=== PATIENT | female | born 1990 ===

== ENCOUNTER 2025-05-09 00:37 | Day surgery (SDC) | payer OTHER, SELFPAY ==
[2025-05-03 08:49] VITALS: BMI 27.8
--- NOTE | 2025-05-03 09:07 | PC.NURSE ---
[facility] has started construction of its new state of the art ER which will open Spring 2026. With this, we anticipate parking may be a challenge for some our surgical patients and families. Parking spaces are limited but are available for all Surgical, obstetrics, and ER patients sharing this lot. If you arrive and find you are having a hard time finding a parking space, please note that we understand the challenges, please drive around the hospital and park near Hospital Entrance 1. When you enter this entrance, you can ask a volunteer to direct or take you back to the surgical waiting area to check in. We appreciate everyone?s understanding of these expected challenges while we build for your future. Report to Hospital entrance 7 right of the green pavilion by [employer] located off [address], at time _1100_ on date _[phone]_. Planned Procedure Time: _1pm_.? Time changes happen often and if your time is changed the preop area will call you the afternoon before. - You and your visitor will be asked to self-screen and do not enter if you have any COVID symptoms. Please call surgeon if you need to reschedule. - A mask is optional within the hospital at this time. Patients may have clear liquids (water, carbonated beverages, clear teas, apple juice) until 3 hours prior to surgery with a maximum of 20 ounces. - No food from midnight until time of surgery and no smoking, or chewing tobacco (or any form of nicotine). No chewing gum, candy or mints. Take only the following medications with a SIP of water on the morning of surgery: ___Norethindrone____ DO NOT STOP ANY OF YOUR OTHER PRESCRIPTION MEDICATIONS PRIOR TO SURGERY EXCEPT THE FOLLOWING Hold all vitamins and supplements for 3 days per anesthesiologist. Medications to discontinue per physician Date to take last dose Please no make-up, nail saudi arabian, hairspray, perfume, deodorant, or body powder the day of surgery.? No jewelry (including any body piercings) or valuables the day of surgery, leave them at home.? Please take a shower or bath the night before, or the morning of, surgery with an antibacterial soap.? Wear comfortable, loose fitting clothing.? - Jewelry must be removed prior to entering the operating room.? Rings and piercings that are not removed may be cut off. - The hospital will not accept responsibility for valuables.? - Please leave all valuables, including medications, at home the day of surgery. If you are going home after surgery, a licensed skip load driver must drive you home.? - NO public transportation without another adult if you receive anesthesia. - We recommend that an adult stay with you for 24 hours following discharge. - We also recommend that you do not drive, make important decision, drink alcoholic beverages, or take any drugs that were not prescribed by your health care provider for at least 24 hours after your discharge time. Follow any additional instructions given to you from your surgeon. Telephone instructions given to _Tiffany Kamara__and asked if any additional questions and then verbalized understanding. Patient advised to call surgeon office or pre surgery nurse liaison [phone] if any additional questions.
--- OUTSIDE RECORDS SUMMARY | 2025-05-09 02:04 | XMS_ITS | Clinical Summary ---
Author Organization [facility] Address [address] [place] [address] Care Team Providers Care Technical Internship Name Role Phone Liliana Ybarra Primary Care Provider + Allergies Active Allergy Reactions Criticality Noted Date Comments Amoxicillin-Pot Clavulanate Hives 02/20/20 25 Sulfamethoxazole-Trimethoprim Hives 2024 Medications omeprazole (PRILOSEC) 20 MG capsule Take 1 capsule (20 mg total) by mouth 2 (two) times a day. Active Active Problems Problem Noted Date Diagnosed Date Acid reflux 01/01/2025 Encounters Date Type Department Care Team Description 02/19/2025 1:05 PM CDT - 02/19/2025 2:05 PM CDT Surgery [facility] Surgical Services [address] [address] Ruthann Hardin MD Upper Endoscopy with biopsies 02/19/2025 12:36 PM CDT Anesthesia Event [facility] Surgical Services [address] [place] [address] Ruthann Rivas CRNA 02/19/2025 11:28 AM CDT - 02/19/2025 1:28 PM CDT Hospital Encounter [facility] Surgical Services [address] [place] [address] Ruthann Hardin MD Discharge Disposition: Home or Self Care (Routine Discharge) 02/19/2025 Travel from Last 3 Months Social History Tobacco Use Types Packs/Day Years Used Date Smoking Tobacco: Former Cigarettes Tobacco Cessation:Counseling Given: Not Answered Alcohol Use Standard Drinks/Week Comments Not Currently 0 (1 standard drink = 0.6 oz pur e alcohol) Comments No Sex and Gender Information Value Date Recorded Sex Assigned at Female 07/05/2024 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 Sex Female 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 Gender Identity Not on file Sexual Orientation Not on file Last Filed Vital Signs Vital Sign Reading Time Taken Comments Blood Pressure 126/59 02/19/2025 12:51 PM CDT Pulse 66 02/19/2025 12:18 PM CDT Temperature 36.5 C (97.7 F) 02/19/2025 12:18 PM CDT Respiratory Rate 16 02/19/2025 12:51 PM CDT Oxygen Saturation 98% 02/19/2025 12:51 PM CDT Inhaled Oxygen Concentration - - Weight - - Height - - Body Mass Index - - Plan of Treatment Health Maintenance Due Date Last Done Comments Cervical Cancer Screening Pa p Smear (Age 30 to 64) Every 3 Years 1989 Annual Physical 1992 Hepatitis C 2007 DTaP, Tdap and Td Vaccines ( 1 - Tdap) 2008 Hepatitis B Vaccines (1 of 3 - 19+ 3-dose series) 2008 HPV Vaccines (1 - 3-dose SCD M series) 2016 Cervical Cancer Screening Pa p with HPV Testing (Age 30 to 64) Every 5 Years 2019 Cervical Cancer Screening with HPV 2019 COVID-19 Vaccine (2024-2 6 season) 2025 Influenza Adult (#1) 2025 Hepatitis A Vaccines Aged Out No long er eligible based on patient's age to complete this topic Meningococcal B Vaccine Aged Out No l onger eligible based on patient's age to complete this topic Meningococcal Vaccine Aged Out No ruthy janna eligible based on patient's age to complete this topic Pneumococcal Vaccine: Pediat rics (0 to 5 Years) and At-Risk Patients (6 to 49 Years) Aged Out No longer eligible b ased on patient's age to complete this topic RSV Immunizations Under 20 Months Aged Out No longer eligible based on patient's age to complete this topic Procedures Procedure Name Priority Date/Time Associated Diagnosis Comments UPPER GI ENDOSCOPY,DIAGNOS IS 02/19/2025 12:35 PM CDT Acid reflux Case Notes LONG TERM patient HC URINE TEST Routine 02/19/2025 12:05 PM CDT PATHOLOGY Routine 02/19/2025 12:00 AM CDT from Last 3 Months Results * TEST URINE (02/19/2025 12:05 PM CDT) URINE HCG TEST NEGATIVE NEGATIVE 02/19/2025 12:21 PM CDT [facility] Comment: VERY DILUTE URINE SPECIMENS MAY NOT CONTAIN HOSPITAL ACCOUNT MANAGER LEVELS OF HCG. IF IS STILL SUSPECTED, A SERUM HCG TEST IS RECOMMENDED. URINE SPECIMEN FROM [facility] / Unknown 02/19/2025 12:05 PM CDT us Ruthann Rivas CRNA URINE ORDERABLES Final Resu lt [address] [place] [address], * Pathology (02/19/2025 12:00 AM CDT) PATHOLOGY [facility] Department of Laboratory Medicine [address] [place] [id number] , extension [phone] Pathology Report Surgical Pathology Report Name: MICHELLE WHARTON Specimen #: [id number] Age: 11 1990 (Age: 34) Location: [facility] Sex: F Procedure Date: 02/19/2025 Hospital #: [id number] Date Received: 02/20/2025 Date Reported: 02/21/2025 Provider: RUTHANN HARDIN MD Source: GE junction, biopsies Clinical History: GERD. FINAL DIAGNOSIS: GE junction, biopsy: - Squamous mucosa with features of reflux esophagitis. - Cardia mucosa with acute and chronic inflammation and reactive epithelial changes. - Negative for Alas's metaplasia. Gross Description: Received in formalin, labeled with a patient label and as GE junction biopsies are 3 pieces of delicate pink-white tissue ranging from 0.2 to 0.3 cm. The specimen is entirely submitted in cassette 1. Gross examination (when applicable), interpretation, and sign out were performed at [facility], [address] [place] [address]. Electronically Signed Out MARINA NUÑEZ MD [facility] TISSUE STOMACH STRUCTURE / Unknown 02/19/2025 12:44 PM CDT us Ruthann Hardin MD PATHOLOGY/CYTOLOGY ORDERABLES Final Result [facility] [address] [place] [address], [id number] from Last 3 Months Insurance [employer] Care Teams Technical Internship Relationship Specialty Start Date End Date Liliana Ybarra PA [address] [place] [address] PCP - General PHYSICIAN SMOKE TESTER 07/11/24
--- OUTSIDE RECORDS SUMMARY | 2025-05-09 02:04 | XMS_ITS ---
Author Organization Unknown ENCOUNTERS Encounter Performer Location Date Diagnosis Diagnosis Status Outpatient [address] [place] [address] [id number] *Note: Encounters from your own facility or health system may be excluded. Allergies, Adverse Reactions, Alerts Allergen Type Severity Identification Date clavulanic acid drug allergy 3 [id number] sulfamethoxazole drug allergy 3 [id number] trimethoprim drug allergy 3 [id number] amoxicillin drug allergy 3 [id number] Medications Name Date Quantity Days Supplied GPI Number
[2025-05-09 11:35] VITALS: BP 108/76; PULSE 58; TEMP 36.8; O2SAT 100; BMI 27.2
[2025-05-09] MEDS: ACETAMINOPHEN 500 MG TABLET 1000 MG PO (11:43)
[2025-05-09] MEDS: LACTATED RINGERS 1,000 ML 30 ML IV CONT (11:43)
[2025-05-09 11:49] LABS: BEDSIDEPREGUCG Negative (Negative)
--- NOTE | 2025-05-09 12:30 | WPDHPUPDATE1 ---
History and Physical Update Update Date/Time: 05/09/25 12:30 History and Physical has been reviewed, including an updated exam of the patient. There are NO changes in the patient's condition. Risks, benefits, and alternatives have been discussed and questions answered. Patient agrees to proceed with procedure.
--- NOTE | 2025-05-09 13:02 | WPDANESEPPF ---
Anes - Initial Pre Proc Eval Procedure: Operation Date: 05/09/25 13:00 Proposed Procedures p Cold Knife Cone Biopsy - Nadeem Hutchinson MD Date/Time: 05/09/25 13:02 Surgeon: Nadeem Hutchinson MD Pre Op Diagnosis: high grade dysplasia Patient Data Age: 35 Gender: F Height: 1.63 m Weight: 72.05 kg Last Vital Signs Temp 36.8 C 05/09/25 11:35 Pulse 58 L 05/09/25 11:35 BP 108/76 05/09/25 11:35 Pulse Ox 100 05/09/25 11:35 Allergies Allergy/AdvReac Type Severity Reaction Status Date / Time amoxicillin (From Augmentin) Allergy Diarrhea Verified 05/09/25 10:59 clavulanic acid (From Allergy Diarrhea Verified 05/09/25 10:59 Augmentin) sulfamethoxazole (From Allergy Hives Verified 05/09/25 10:59 Bactrim) trimethoprim (From Bactrim) Allergy Hives Verified 05/09/25 10:59 Home Medications ?Medication ?Instructions ?Recorded ?Confirmed ?Type norethindrone (contraceptive) 0.35 0.35 mg PO DAILY 05/03/25 05/03/25 History mg tablet Laboratory Tests 05/09/25 11:35 POC Urine HCG, Qual Negative (Negative) Patient hx anesthesia problems: none Family hx anesthesia problems: none Results Review: All pre-operative results and documents have been reviewed as part of the pre-operative evaluation. PMFSH Past Medical History Medical History Acid reflux Surgical History Surgical History History of colposcopy History of loop electrosurgical excision procedure (LEEP) Social History Social History Smoking status: Never smoker Living arrangements: incarcerated Anes - Eval Final PreProcedure Day of Procedure 05/09/25 13:02 Patient weight: normal Heart: regular rate and rhythm Lungs: clear to auscultation Airway: Mallampati scale class 1 Neurological: alert and oriented Last oral intake: >/= 8 hours ASA classification: II Emergent: no Anesthetic plan: proceed Anesthesia type and monitoring: general GIVS and standard monitoring Results Review: All pre-operative results and documents have been reviewed as part of the pre-operative evaluation. Informed Consent: The patient's anesthetic plan and its attendant risks and benefits were discussed with the patient/family/POA. Questions were solicited and answers provided to the satisfaction of the patient/family/POA.
[2025-05-09] MEDS: LIDO 1%/EPINEPHRINE/PF 1:200,000 30 ML VIAL 10 ML XX (13:14)
[2025-05-09] MEDS: ceFAZolin 2 GM in SODIUM CHLORIDE 0.9% IV 50 ML 100 ML IVPB (13:14)
--- NOTE | 2025-05-09 13:39 | S_PTH ---
PATIENT: Betzy Wharton LOC: [facility] U#:[id number] AGE/SX: 35/F ROOM: RE05/09/[address]: Nadeem Hutchinson MD : 1990 BED: DIS: 05/09/2025 SPEC #: [id number] RECD: 05/09/25 14:26 STATUS: GERMAN REQ #: [id number] JUD: 05/09/25 13:[address]: Nadeem Hutchinson DEPT: [facility] Surgical RECD BY: Leanna Soares ENTERED: 05/09/25 14:26 SP TYPE: Surgical OTHR DR: UNKNOWN,DOCTOR Tissues: A - Leep/Cone Procedures: Hematoxylin and Eosin Stain Gross and Microscopic Level 5
[2025-05-09] MEDS: FERRIC SUBSULFATE 8 ML SOLUTION WITH APPLICATOR TOPICAL (14:00)
[2025-05-09 14:10] VITALS: BP 105/70; PULSE 68; RESP 14; O2SAT 99
[2025-05-09 14:40] VITALS: BP 110/73; PULSE 58; RESP 16
[2025-05-09 15:05] VITALS: BP 117/79; PULSE 65; RESP 16
--- NOTE | 2025-05-10 09:59 | W.PM.PROC2 ---
Procedure Note - Detailed Date of Procedure 05/10/25 Pre-op Diagnosis high grade dysplasia Post-op Diagnosis Same Procedure Performed Cold knife cone biopsy Surgeon Nadeem Hutchinson MD Anesthesia MAC and Local Description of Procedure After consent was obtained, the patient was taken to the operating room. Adequate IV sedation was administered. She was prepped and draped in the normal sterile fashion in dorsal lithotomy position. A speculum was placed in the posterior vagina.?0 chromic stay sutures were placed at the cervical vaginal junction at 3 o'clock and 9 o'clock. Lugol's solution was placed on cervix. Slight hypopigmentation at 5-6 position. ?An angled knife was used to excise a cone section of the cervix incorporating the hypopigmented area. A residual segment at inferior was excised. Electrode ball cautery was used at excision area. 0 vicryl running suture was used at biopsy site to obtain hemostasis. Hemostasis noted. Monsels applied. Stay sutures were trimmed.? All instruments removed from the vagina.? Patient was repositioned in stable condition.? Sponge lap needle instrument counts were correct x2. ? Estimated Blood Loss 30 Drains No Packing No Pathology Yes (cervical cone biopsy marked at 6) Complications No immediate complications Condition Stable Disposition Same day [facility] Billing Surgery - Charge Forward: Surgery Billing
== END 2025-05-09 15:15 | disposition home or self-care (01) ==
PROVIDERS: Anesthesiology; Visit Provider Obstetrics & Gynecology
PROC: 0UB97ZZ Excision of Uterus, Via Natural or Artificial Opening (ICD-10-PCS; CPT 57520; principal; 2025-05-09 13:00)
DX: N87.9 Dysplasia of cervix uteri, unspecified (principal)
CPT/HCPCS: 57520; 88307; J0690; A9270; J1100; J2003; J2004; J2250; J2405; J2704; J3010; J7120